=== PATIENT | female | born 1940 | race Caucasian/White ===

== ENCOUNTER 2021-04-05 18:33 | Emergency (ER) | payer MEDICARE, SELFPAY ==
[2021-04-05 19:16] VITALS: PULSE 62; RESP 20; TEMP 36.6; O2SAT 100; BMI 30.2
[2021-04-05 20:36] VITALS: BP 152/55; PULSE 62; RESP 16; TEMP 36.7; O2SAT 99
--- NOTE | 2021-04-05 20:43 | ED_ITS ---
HPI - Skin/Abscess/Foreign Bdy General Chief complaint: Skin/Abscess/Foreign Body Stated complaint: ARM INFECTION Time Seen by Provider: 04/05/21 20:43 Source: patient Mode of arrival: ambulatory Limitations: no limitations History of Present Illness HPI narrative: While taking off her sleeves patient got superficial skin tear on the left forearm from her nail surrounding area becoming red and warm no other symptoms no fever no chills otherwise patient feels okay Related Data Previous Rx's Medication Instructions Recorded cephalexin 500 mg capsule 500 mg PO QID 10 Days #40 cap 04/05/21 Allergies Allergy/AdvReac Type Severity Reaction Status Date / Time aminophylline [AMINOPHYLLINE] Allergy Severe ANAPHYLAXIS Unverified 04/17/20 16:34 Review of Systems Review of Systems: Yes all other systems are reviewed and are negative [facility] Past Medical History Medical History GERD (gastroesophageal reflux disease) HLD (hyperlipidemia) HTN (hypertension) Surgical History History of partial hysterectomy History of throat surgery Social History Social History Advance Directives: No Physical Exam Vital Signs: Vital Signs: Last Vital Signs Temp 98.0 F 04/05/21 20:36 Pulse 62 04/05/21 20:36 Resp 16 04/05/21 20:36 BP 152/55 H 04/05/21 20:36 Pulse Ox 99 04/05/21 20:36 Body Mass Index 30.2 Const: General: comfortable and no acute distress Orientation/consciousness: patient oriented x3 HENMT: Head: Yes normocephalic and Yes atraumatic Eyes: General: appearance normal, both eyes and all related structures Resp: Effort & Inspection: normal respiratory effort Auscultation: clear to auscultation bilaterally Cardio: Palpation: normal PMI Rate: regular rate Rhythm: regular rhythm Heart sounds: S1 normal heart sound present and S2 normal heart sound present Neuro: General: patient oriented x3, gait normal and no focal motor deficits Extrem: Elbow/forearm/wrist images: 1. Superficial skin tear with surrounding erythema and warmth no pus discharge MDM - Skin/Abscess/Foreign Bdy MDM Narrative Medical decision making narrative: Patient with superficial cellulitis of left forearm will discharge her home on cephalexin Discharge Plan Discharge Clinical Impression: Cellulitis Patient Disposition: Home, Self-Care Instructions: Cellulitis (ED) Additional Instructions: Local care as advised apply bacitracin ointment Antibiotic by mouth as prescribed Report to the ER/PCP if worsening of the redness or swelling Prescriptions: New cephalexin 500 mg capsule 500 mg PO QID 10 Days Qty: 40 RF: 0 Interventions: ED Discharge Assessment Last Done: 04/05/21 21:30 Discharge Date/Time: 04/05/21 21:30
[2021-04-05] MEDS: cephALEXin 500 MG CAPSULE PO (21:16)
== END 2021-04-05 21:30 | disposition home or self-care (01) ==
PROVIDERS: Emergency Provider Internal Medicine; PCP Internal Medicine
DX: L03.114 Cellulitis of left upper limb (principal); Z79.899 Other long term (current) drug therapy
CPT/HCPCS: 99283; 99284

== ENCOUNTER 2021-04-24 18:50 | Outpatient (REF) | payer MEDICARE, SELFPAY | END 2021-04-24 18:51 | disposition home or self-care (01) | LOC: HO.LNP 18:50 | PROVIDERS: Visit Provider Internal Medicine | DX: Z20.822 Contact with and (suspected) exposure to COVID-19 (principal); J06.9 Acute upper respiratory infection, unspecified | CPT/HCPCS: U0003; U0005 ==

== ENCOUNTER 2022-04-27 12:39 | Outpatient (RCR) | payer MEDICARE, SELFPAY | END 2022-06-29 14:14 | disposition home or self-care (01) | LOC: HO.WCC 12:39 | PROVIDERS: PCP Internal Medicine; Visit Provider Physician Assistant | DX: I87.331 Chronic venous hypertension (idiopathic) with ulcer and inflammation of right lower extremity (principal); L97.812 Non-pressure chronic ulcer of other part of right lower leg with fat layer exposed; J44.9 Chronic obstructive pulmonary disease, unspecified; Z87.891 Personal history of nicotine dependence | CPT/HCPCS: 11042; 11045; 29581; 97597; 99212; 99213 ==